=== PATIENT | male | born 1955 | race Two or more races ===

== ENCOUNTER 2019-02-13 19:00 | Emergency (ER) | payer OTHER ==
[~2019-02-13] VITALS: Ht 175.3 cm; Wt 89.4 kg
[2019-02-13] MEDS ORDERED: OMEG1CAP38 PO (19:15)
[2019-02-13] MEDS ORDERED: [UNRECOGNIZED DRUG - REMARK] (19:15)
--- NOTE | 2019-02-13 19:23 | PHYS DOC ---
Past Medical History Past Medical History: High Cholesterol Past Surgical History: Other Additional Past Surgical Histo: hernia Alcohol Use: Occasionally Drug Use: None Adult General Chief Complaint Chief Complaint: MECHANICAL FALL HPI HPI 63-year-old male presents to the emergency Department complaints of fall. Patient currently tripped over his dog from a standing position injuring his right arm. He complains of shoulder pain, arm pain, hand pain. Patient denies any loss of consciousness, no blood thinning medications. Nothing makes his pain worse, nothing makes his pain better. Patient denies any headache, visual change, chest pain, shortness breath, nausea or vomiting. Review of Systems Review of Systems Constitutional: Denies fever or chills [] Respiratory: Denies cough or shortness of breath [] Cardiovascular: No additional information not addressed in HPI [] GI: Denies abdominal pain, nausea, vomiting, bloody stools or diarrhea [] : Denies dysuria or hematuria [] Musculoskeletal: Right arm, shoulder, hand pain Integument: Denies rash or skin lesions [] Neurologic: Denies headache, focal weakness or sensory changes [] All other systems were reviewed and found to be within normal limits, except as documented in this note. Current Medications Current Medications Current Medications Medications (Trade) Dose Ordered Sig/Victor[place] Start Time Stop Time Status Last Admin Dose Admin Fentanyl Citrate (Fentanyl 2ml Vial) 50 mcg PRN Q5MIN PRN 02/13/19 21:30 02/14/19 21:29 Hydromorphone HCl (Dilaudid) 0.5 mg PRN Q10MIN PRN 02/13/19 21:30 02/14/19 21:29 Lidocaine HCl (Xylocaine-Mpf 1% 2ml Vial) 2 ml PRN 1X PRN 02/13/19 21:30 02/14/19 21:29 Morphine Sulfate (Morphine Sulfate) 1 mg PRN Q10MIN PRN 02/13/19 21:30 02/14/19 21:29 Ondansetron HCl (Zofran) 4 mg PRN Q6HRS PRN 02/13/19 21:30 02/14/19 21:29 Prochlorperazine Edisylate (Compazine) 5 mg PACU PRN PRN 02/13/19 21:30 02/14/19 21:29 Propofol 20 ml @ As Directed STK-MED ONCE 02/13/19 21:29 02/13/19 21:29 DC Ringer's Solution 1,000 ml @ 30 mls/hr Q24H 02/13/19 21:22 02/14/19 09:21 Allergies Allergies Allergies Coded Allergies Type Severity Reaction Last Updated Verified No Known Drug Allergies 02/13/19 No Physical Exam Physical Exam Constitutional: Well developed, well nourished, no acute distress, non-toxic appearance. [] HENT: Normocephalic, atraumatic, bilateral external ears normal, oropharynx moist, no oral exudates, nose normal. [] Eyes: PERRLA, EOMI, conjunctiva normal, no discharge. [] Cardiovascular:Heart rate regular rhythm, no murmur [] Lungs & Thorax: Bilateral breath sounds clear to auscultation [] Abdomen: Bowel sounds normal, soft, no tenderness, no masses, no pulsatile masses. [] Skin: Warm, dry, no erythema, no rash. [] Back: No tenderness, no CVA tenderness. [] Extremities: No tenderness, no edema, limited range of motion secondary to pain no obvious deformity, patient able to squeeze my fingers on exam, some sensory loss along lateral aspect of shoulder[] Neurologic: Alert and oriented X 3, no focal deficits noted. [] Psychologic: Affect normal, judgement normal, mood normal. [] Repeat exam post reduction, patient able to move hand and follow commands appropriately, he denies any sensory loss on exam Current Patient Data Vital Signs Vital Signs Date Time Temp Pulse Resp B/P (MAP) Pulse Ox O2 Delivery O2 Flow Rate FiO2 02/13/19 19:03 97.3 79 22 203/106 (138) 95 Room Air 97.3 EKG EKG [] Radiology/Procedures Radiology/Procedures [] Course & Med Decision Making Course & Med Decision Making Pertinent Labs and Imaging studies reviewed. (See chart for details) []63-year-old male presents to the emergency Department complaints of fall. Patient currently tripped over his dog from a standing position injuring his right arm. He complains of shoulder pain, arm pain, hand pain. Patient denies any loss of consciousness, no blood thinning medications. Nothing makes his pain worse, nothing makes his pain better. Patient denies any headache, visual change, chest pain, shortness breath, nausea or vomiting. Anterior dislocation of shoulder appreciated on imaging Sedation provided see nursing notes Attempted reduction without success x 2 Ortho at bedside (Juanita), Anesthesia at bedside Sedation provided see nursing notes Attempted reduction with success post reduction film with shoulder in place Dragon Disclaimer Dragon Disclaimer This electronic medical record was generated, in whole or in part, using a voice recognition dictation system. Departure Departure Impression: Primary Impression: Shoulder dislocation Disposition: 01 HOME, SELF-CARE Condition: STABLE Referrals: NON,STAFF (PCP) Patient Instructions: Sedation, Moderate, Adult, Shoulder Dislocation, [id number] Additional Instructions: Recommend follow up with PCP 3 - 5 days Return to the ER with worsening symptoms, intractable pain, fever, altered mental status Tylenol/Motrin as needed for pain Shoulder sling in place Recommend follow up with Dr. Grant (office number provided) Problem Qualifiers Primary Impression: Shoulder dislocation Encounter type: initial encounter Laterality: right Qualified Codes: S43.004A - Unspecified dislocation of right shoulder joint, initial encounter RICHARD JONES MD Feb 13, 2019 19:23
[2019-02-13] MEDS ORDERED: PROPOFOL 20 ML IV ONE ×2 (20:25→21:29)
[2019-02-13 20:47] VITALS: BP 199/103
[2019-02-13] MEDS ORDERED: IV RINGERS,LACTATED 1000ML 1,000 ML IV SCH (21:22)
[2019-02-13] MEDS ORDERED: PROCHLORPERAZINE 10 MG/2 ML VIAL. IV PRN (21:30)
[2019-02-13] MEDS ORDERED: LIDOCAINE 1% PF 2 ML VIAL. ID PRN (21:30)
[2019-02-13] MEDS ORDERED: ONDANSETRON PF 4 MG/2 ML VIAL. IV PRN (21:30)
[2019-02-13] MEDS ORDERED: MORPHINE SULFATE 2 MG/ML VIAL. IV PRN (21:30)
[2019-02-13] MEDS ORDERED: HYDROmorphone 2 MG/ML VIAL IV PRN (21:30)
[2019-02-13] MEDS ORDERED: fentaNYL PF VIAL 100 MCG/2 ML VIAL IV PRN ×2 (21:30)
--- NOTE | 2019-02-13 21:51 | PDOC2 ---
CONSULT Date of Consult Date of Consult DATE: 02/13/19 TIME: 21:42 Reason for Consult Reason for Consult: Right shoulder dislocation, difficult to reduce Referring Physician Referring Physician: Slime Identification/Chief Complaint Chief Complaint Right shoulder dislocation Source Source: Chart review, Patient History of Present Illness Reason for Visit: This 63-year-old right-handed man works at [employer]. He was walking his dog this evening when he tripped and fell and dislocated his shoulder. Dr. Palencia in the ER tried to reduce it after sedation with propofol, and he was unable to get it reduced. I was consulted. Patient still reports pain in the shoulder and immobility of the arm. He was unable to sign a consent (but gave verbal consent) and feels like he is unable to work his fingers very well at this time. Past Medical History Past Medical History He takes omega-3 fish oil and a cholesterol medication Current Medications Current Medications Current Medications Propofol 20 ml @ As Directed STK-MED ONCE IV ; Start 02/13/19 at 20:25; Stop 02/13/19 at 20:25; Status DC Ondansetron HCl (Zofran) 4 mg PRN Q6HRS PRN IV NAUSEA/VOMITING; Start 02/13/19 at 21:30; Stop 02/14/19 at 21:29 Fentanyl Citrate (Fentanyl 2ml Vial) 25 mcg PRN Q5MIN PRN IV MILD PAIN 1-3; Start 02/13/19 at 21:30; Stop 02/14/19 at 21:29 Fentanyl Citrate (Fentanyl 2ml Vial) 50 mcg PRN Q5MIN PRN IV MODERATE TO SEVERE PAIN; Start 02/13/19 at 21:30; Stop 02/14/19 at 21:29 Morphine Sulfate (Morphine Sulfate) 1 mg PRN Q10MIN PRN IV SEVERE PAIN 7-10; Start 02/13/19 at 21:30; Stop 02/14/19 at 21:29 Ringer's Solution 1,000 ml @ 30 mls/hr Q24H IV ; Start 02/13/19 at 21:22; Stop 02/14/19 at 09:21 Lidocaine HCl (Xylocaine-Mpf 1% 2ml Vial) 2 ml PRN 1X PRN ID PRIOR TO IV START; Start 02/13/19 at 21:30; Stop 02/14/19 at 21:29 Hydromorphone HCl (Dilaudid) 0.5 mg PRN Q10MIN PRN IV SEV PAIN, Second choice; Start 02/13/19 at 21:30; Stop 02/14/19 at 21:29 Prochlorperazine Edisylate (Compazine) 5 mg PACU PRN PRN IV NAUSEA, MRX1; Start 02/13/19 at 21:30; Stop 02/14/19 at 21:29 Propofol 20 ml @ As Directed STK-MED ONCE IV ; Start 02/13/19 at 21:29; Stop 02/13/19 at 21:29; Status DC Active Scripts Active Reported ["statin"] Sawyer 3 Fish Oil Softgel (Sawyer-3 Fatty Acids/Fish Oil) 1 Each Capsule.dr 1 Each PO DAILY Allergies Allergies: Coded Allergies: No Known Drug Allergies (Unverified , 02/13/19) Physical Exam General: Alert, Cooperative, Other (poor dentition) HEENT: Atraumatic, Other (poor dentition) Lungs: Normal air movement Heart: Regular rate Extremities: Other (right shoulder has deformity consistent with inferior anterior dislocation. The skin is intact other than some minor abrasions on the elbow. Radial pulse is intact. Capillary refill is normal. He has only a flicker of motion in the fingers for the radial ulnar and median nerves. Axillary nerve sensation seems to be intact but he cannot activate the deltoid at all.) Skin: No significant lesion Neuro: Other (sensation in the hand is slightly decreased) Psych/Mental Status: Mood NL Vitals VITALS Vital Signs Date Time Temp Pulse Resp B/P (MAP) Pulse Ox O2 Delivery O2 Flow Rate FiO2 02/13/19 19:03 97.3 79 22 203/106 (138) 95 Room Air 97.3 Images Images I reviewed the x-rays which show anterior inferior dislocation without apparent fracture, of the right glenohumeral joint Assessment/Plan Assessment/Plan Closed right shoulder dislocation. I spoke to the patient about options for treatment. I recommended 1 more attempt in the ER of doing a closed reduction with propofol, without complete muscle paralysis. The next step would be a trip to the operating room for complete muscle paralysis and intubation, and likely closed reduction. Finally I did mention to him briefly the possibility of an open reduction for irreducible dislocation caused by entrapment of the biceps tendon and rotator cuff. He agreed to proceed with probable closed reduction in the ER and gave verbal consent for a trip to the operating room if needed. Dr. Palencia the ER doctor as well as Dr. Figueredo the anesthesiologist managed the propofol sedation in the ER. Bag oxygen was used, and constant cardiopulmonary monitoring was used. Approximately 100 mg of propofol was used, until the patient no longer had the urge to withdraw or have muscle spasm. Traction was used manually, and maintain for a few seconds to allow muscle relaxation. This was a difficult reduction, however with sustained manual traction the shoulder reduced. The patient was allowed to awake and ca rdiopulmonary monitoring and oxygenation were maintained. There were no apparent complications. Postreduction x-ray at 21:39:15 shows satisfactory glenoid humeral reduction. The patient should use an arm sling and have office follow-up. TIFFANY DAMON MD Feb 13, 2019 21:51
--- NOTE | 2019-02-13 22:03 | PHYS DOC ---
MODERATE SEDATION ASSESSMENT RISKS/ALTERNATIVES Risks/Alternatives Risks and alternatives of this type of sedation and procedure discussed with: RISK/ALTERNATIVES: Patient H & P ON CHART H & P H & P on chart and reviewed for co-morbid conditions and appropriate labs. H&P ON CHART: Yes STATUS PREG STATUS ASSESSED: N/A MEDS/ALLERGIES REVIEWED Meds/Allergies Reviewed Medications and Allergies including time and route of recently administered narcotics and sedatives. MEDS/ALLERGIES REVIEWED: Yes ASA RATING ASA RATING: I AIRWAY ASSESSMENT Airway Assessment Airway patency, oral function limitations, presence of caps, crowns, dentures, partials, and ability to extend neck assessed. AIRWAY ASSESSMENT: Yes MALLAMPATI SCORE MALLAMPATI SCORE: I PRE-SEDATION ASSESSMENT PRE-SEDATION ASSESSMENT: Yes RICHARD JONES MD Feb 13, 2019 22:03
[2019-02-13 22:32] VITALS: BP 156/84
[2019-02-13] MEDS ORDERED: HYDROcodone/APAP 5/325MG 1 TAB TABLET PO ONE (23:00)
--- NOTE | 2019-02-14 00:05 | RAD ---
3 views right wrist HISTORY: Pain status post fall AP lateral oblique views The visualized osseous structures appear normal. IMPRESSION: No acute findings. End impression Very views right shoulder 9:15 PM History: pain Internally and externally rotated AP of shoulder obtained and Y view. The right humeral head projects anterior and slightly inferior and medial to the glenoid. There is moderate degenerative changes the right AC joint. impression: Status post anterior dislocation right shoulder. End impression 3 views right shoulder 9:39 PM: History status post reduction Internally and actually rotated AP views and Y-view The glenohumeral relationship has been restored. The visualized osseous structures appear grossly intact. IMPRESSION: Status post successful reduction of right shoulder anterior dislocation. End impression Two-view right humerus AP lateral views The visualized osseous structures appear grossly intact. Previously seen anterior dislocation right shoulder seen. IMPRESSION: No fracture seen. 2 views right forearm: AP lateral views The visualized osseous structures appear normal. IMPRESSION: No acute findings. Electronically signed by: Jeffy Brar III, MD (02/14/2019 12:01 AM) [facility]
== END 2019-02-13 22:50 | disposition home or self-care (01) ==
LOC: ER 19:00
DX: S43.004A Unspecified dislocation of right shoulder joint, initial encounter (principal); E78.00 Pure hypercholesterolemia, unspecified; W18.39XA Other fall on same level, initial encounter; Y93.89 Activity, other specified; Y92.89 Other specified places as the place of occurrence of the external cause; Y99.8 Other external cause status
CPT/HCPCS: 23650; 73020; 73030; 73060; 73090; 73110; 99285-25

== ENCOUNTER → 2019-08-01 | Outpatient (CLI) | payer OTHER ==
[~2019-08-01] MED LIST: OMEG1CAP38 PO; [UNRECOGNIZED DRUG - REMARK]
--- NOTE | 2019-08-01 12:46 | KCIC ---
UPPER EXT NON JOINT WO CONT RT 08/01/2019 10:15 AM INDICATION: Dislocation right shoulder. Unable to raise right arm. COMPARISON: None available. TECHNIQUE: Multiplanar, multisequence MR imaging of the right brachial plexus was performed without intravenous contrast. FINDINGS: Spinal cord: Normal caliber and signal of the visualized spinal cord. Minimal retrolisthesis of C5 on C6. Disc bulges are identified at C3-C4, C4-C5, C5-C6 and C6-C7. At C3-C4, there is mild disc bulge with moderate left and moderate facet arthropathy resulting in moderate left and mild right neuroforaminal stenosis. At C4-C5, there is mild disc bulge with moderate to severe left and moderate right facet arthropathy and mild left uncovertebral joint disease resulting in moderate left and mild right neuroforaminal stenosis. At C5-C6, there is a posterior disc osteophyte complex with left central disc protrusion extending into the foraminal zone with moderate facet and mild uncovertebral joint disease resulting in severe left neuroforaminal stenosis and mild spinal canal stenosis without deformity of the cord or cord signal alteration. At C6-C7, there is a disc bulge asymmetric to the right. Mild facet arthropathy and uncovertebral joint disease. Moderate right and mild left neuroforaminal stenosis. Mild spinal canal stenosis. Brachial plexus: Roots: Normal. Trunks: Normal. Divisions: Normal. Cords: Normal. Branches: Normal. Muscles and tendons: Normal morphology and signal intensity of the scalene musculature. Bones: Marrow signal intensity is within normal limits. Joints: Moderate right acromioclavicular osteoarthrosis with fluid in the right acromioclavicular joint space. Please refer to the separate dedicated right shoulder MRI for further evaluation. Thoracic outlet and cervical thoracic Junction: Normal scalene triangle, costoclavicular space, and retropectoralis minor space. Other findings: No vascular abnormality, mass or other significant findings. IMPRESSION: There is no disruption of the right brachial plexus. Mild cervical spondylosis, as described in detail above. Moderate right acromioclavicular osteoarthrosis with fluid in the joint space. Please refer to separate dictated right shoulder MRI for further evaluation. Electronically signed by: Dulce Guardado MD (08/01/2019 12:43 PM) [facility]
--- NOTE | 2019-08-01 12:58 | KCIC ---
MR of the right shoulder HISTORY: Right shoulder dislocation January 2019. Continued shoulder pain. TECHNIQUE: Routine multiplanar sequences are obtained. FINDINGS: Mild motion degradation. The acromioclavicular joint is degenerative, with moderate undersurface osteophytes. Small subacromial spur. Rotator cuff signal heterogeneity compatible with tendinosis. Partial tear of the upper subscapularis tendon insertion. Thinning of the anterior supraspinatus tendon, measures 15 mm AP diameter, compatible with partial thickness articular and bursal surface tearing. This aspect of the tendon measures 1-2 mm in thickness. Partial articular surface tearing through the infraspinatus tendon. No full-thickness disruption or retraction. No advanced muscle atrophy. Trace subacromial subdeltoid bursal fluid. Glenohumeral joint is mildly degenerative. Diffuse labral signal compatible with degeneration. This is greater at the posterosuperior quadrant, suspicious for a degenerative tear. Biceps tendinosis with partial tearing. Slight medial shift of the tendon. No evidence of acute fracture. No aggressive bone destruction. IMPRESSION: 1. Partial-thickness articular and bursal side tearing of the anterior supraspinatus tendon. Partial infraspinatus and subscapularis tendon tears. 2. Labral degeneration, with posterosuperior labral degenerative tear. 3. Biceps tendinosis with partial tearing and slight medial shift. Electronically signed by: Sarthak Chavez MD (08/01/2019 12:55 PM) [place] [id number]
== END ==
LOC: KCIC MRI 10:07
PROVIDERS: ATTEND Orthopaedic Surgery
DX: S14.3XXD Injury of brachial plexus, subsequent encounter (principal); S43.004D Unspecified dislocation of right shoulder joint, subsequent encounter; M47.812 Spondylosis without myelopathy or radiculopathy, cervical region; M19.011 Primary osteoarthritis, right shoulder; M25.411 Effusion, right shoulder; M75.111 Incomplete rotator cuff tear or rupture of right shoulder, not specified as traumatic; X58.XXXD Exposure to other specified factors, subsequent encounter
CPT/HCPCS: 73218; 73221

== ENCOUNTER → 2019-08-27 | Outpatient (CLI) | payer OTHER | END | disposition home or self-care (01) | LOC: LAB 12:17 | PROVIDERS: ATTEND Orthopaedic Surgery | DX: Z01.818 Encounter for other preprocedural examination (principal); Z11.59 Encounter for screening for other viral diseases; M67.813 Other specified disorders of tendon, right shoulder; M75.41 Impingement syndrome of right shoulder; S46.011A Strain of muscle(s) and tendon(s) of the rotator cuff of right shoulder, initial encounter; Y93.89 Activity, other specified; Y92.89 Other specified places as the place of occurrence of the external cause; Y99.8 Other external cause status; S43.004D Unspecified dislocation of right shoulder joint, subsequent encounter; X58.XXXD Exposure to other specified factors, subsequent encounter | CPT/HCPCS: U0003-CS ==

== ENCOUNTER 2019-08-31 05:50 | Day surgery (SDC) | payer OTHER ==
[~2019-08-31] VITALS: Ht 175.3 cm; Wt 97.1 kg
[~2019-08-31 05:50] MED LIST changes: +ACET325T9 PO; +ATOR20TA PO
[2019-08-31] MEDS ORDERED: BUPIVACAINE-EPI 0.5%-1:200000 MPF 30 ML VIAL. ONE (06:51)
[2019-08-31] MEDS ORDERED: LIDOCAINE 1% PF 2 ML VIAL. ONE (06:51)
[2019-08-31] MEDS ORDERED: BUPIVACAINE MPF 0.5% 30 ML VIAL. ONE (06:52)
[2019-08-31] MEDS ORDERED: MIDAZOLAM HCL/PF 2 MG/2 ML VIAL. ONE (06:58)
[2019-08-31] MEDS ORDERED: PROCHLORPERAZINE 10 MG/2 ML VIAL. IV PRN (07:00)
[2019-08-31] MEDS ORDERED: HYDROmorphone 2 MG/ML VIAL IV PRN (07:00)
[2019-08-31] MEDS ORDERED: fentaNYL PF VIAL 100 MCG/2 ML VIAL IV PRN ×2 (07:00)
[2019-08-31] MEDS ORDERED: MORPHINE SULFATE 2 MG/ML VIAL. IV PRN (07:00)
[2019-08-31] MEDS ORDERED: IV RINGERS,LACTATED 1000ML 1,000 ML IV SCH (07:00)
[2019-08-31] MEDS ORDERED: ONDANSETRON PF 4 MG/2 ML VIAL. IV PRN (07:00)
[2019-08-31] MEDS ORDERED: ceFAZolin 2GM PREMIX 2 GM/50 ML BAG IV ONE (07:00)
[2019-08-31] MEDS ORDERED: EPINEPHrine VIAL 30 MG/30 ML VIAL ONE (07:01)
[2019-08-31] MEDS ORDERED: BUPIVACAINE-EPI 0.25%-1:200000 MPF 30 ML VIAL. ONE ×2 (07:01→08:44)
[2019-08-31] MEDS ORDERED: ROCURONIUM 50 MG/5 ML VIAL. ONE (07:10)
[2019-08-31] MEDS ORDERED: SEVOFLURANE > 120 MINUTES. IH ONE (07:10)
[2019-08-31] MEDS ORDERED: GLYCOPYRROLATE 1 MG/5 ML VIAL. ONE (07:10)
[2019-08-31] MEDS ORDERED: fentaNYL PF VIAL 100 MCG/2 ML VIAL ONE ×2 (07:10→08:58)
[2019-08-31] MEDS ORDERED: DEXAMETHASONE SOD PHOS 4 MG/ML VIAL ONE (07:11)
[2019-08-31] MEDS ORDERED: LIDOCAINE 2% PF 5 ML VIAL. ONE (07:11)
[2019-08-31] MEDS ORDERED: NEOSTIGMINE METHYLSULFATE 5 MG/5 ML SYRINGE. ONE (07:11)
[2019-08-31] MEDS ORDERED: PROPOFOL 10 MG/ML (20ML) VIAL. IV ONE (07:11)
[2019-08-31] MEDS ORDERED: ONDANSETRON PF 4 MG/2 ML VIAL. ONE (07:11)
[2019-08-31] MEDS ORDERED: PHENYLEPHRINE 10 MG/ML VIAL. ONE (08:08)
[2019-08-31] MEDS ORDERED: ceFAZolin SODIUM IV Push 1 GM VIAL. IVP ONE (08:24)
[2019-08-31] MEDS ORDERED: hydrALAZINE 20 MG/ML VIAL. ONE (09:01)
--- NOTE | 2019-08-31 10:34 | PDOC4 ---
Operative Note Operative Note Date of Procedure: August 31, 2019 Pre-Op Diagnosis: * Traumatic incomplete tear of right rotator cuff, initial encounter - S46.011A * Impingement syndrome of right shoulder - M75.41 * Biceps tendinosis of right shoulder - M67.813 Post-Op Diagnosis: * Traumatic incomplete tear of right rotator cuff, initial encounter - S46.011A * Impingement syndrome of right shoulder - M75.41 * Acromioclavicular joint osteoarthritis, right shoulder - M19.011 Procedure: * Repair of ruptured musculotendinous cuff (rotator cuff) open, chronic CPT 27757 * Arthroscopy, shoulder, surgical decompression of subacromial space, with partial acromioplasty CPT 71374 * Arthroscopy, shoulder, surgical; distal claviculectomy including distal articular surface (Derrick procedure) CPT 58311 Surgeon: Tiffany Damon MD Global Account Manager: RICO Mason Anesthesia: General EBL: 25 mL Specimens Obtained: none Complications: none Drains: none Findings: High-grade partial tear of the distal supraspinatus tendon, chronic appearance. The upper subscapularis tendon appears normal arthroscopically and during the open portion of the procedure. The biceps tendon looked healthy on the arthroscopic view, and I could detect no partial tearing or tendinitis. During the open portion the biceps tendon was palpated in the intertubercular sulcus and does not seem subluxed or dislocated and I did not feel that tenodesis was warranted. The distal clavicle was extremely prominent, arthritic in nature, causing impingement, and I felt resection of the entire articular surface of the distal clavicle was warranted and that was performed. Implants: Arthrex swivel lock anchors 4.75 mm x 4 Indications for Procedure: Wilmar has had right shoulder pain and weakness since an injury in 2019. He was seen in [facility] on 02/13/2019 after he fell while walking the dog. The ED had difficulty reducing the shoulder and I came in to reduce the shoulder under sedation. 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 At his visit on 04/12/19 he reported continued have pain in the codey ulder and at the biceps with radiation of pain distally. He also reported persistent numbness in his 2nd, 3rd, 4th, and 5th digits on the right. He had been using Tylenol for pain control with some relief. He states that his shoulder continues to be painful although it is better than initially after the injury. He describes pain reaching overhead. The history, exam, and treatments were obtained through school clerk service. MRI shows high-grade partial tear of the distal supraspinatus tendon, biceps pathology, degenerative labral tear small upper subscapularis tendon tear. We discussed potential risks of surgery such as stiffness, re-tear, continued pain, infection, neurovascular injury, or other potential surgical or anesthetic complications. All of his questions about surgery were answered and he desired to proceed. A written consent was obtained. Procedure in Detail: The patient was identified in the preoperative holding area. The correct right shoulder was marked by me. The patient was taken to the operating room where general anesthesia was used. The patient was positioned in the beachchair position with the bony prominences well-padded and the eyes protected. Preoperative antibiotics were given intravenously. A timeout procedure was performed. Under sterile technique 25 mL of bupivacaine with epinephrine was injected into the subacromial space and glenohumeral joint. The limb was then thoroughly prepared with surgical ChloraPrep solution circumferentially. Sterile waterproof arthroscopy shoulder drapes were applied, along with an impervious stockinette over the arm, and a Spider arm richards. Posterior, posterolateral, lateral, and anterior arthroscopy portals were used. The glenohumeral joint showed normal articular surfaces. The biceps tendon was palpated with the shaver, and retracted into the joint, and all of the biceps tendon that I can visualize appears normal. It also does not appear dislocated when viewed arthroscopically. I saw no evidence for need for debridement or tenodesis. There are some minor degenerative changes of the labrum and I did a shaving debridement. The distal portion of the supraspinatus is nearly detached from the humeral head, and the footprint is exposed. This is a high-grade partial-thickness tear, probably 90% of the thickness of the distal supraspinatus. The subacromial space was entered. The anterior acromion was prominent. The ConTurn Edge thermal energy bipolar device was used for hemostasis and to resect the undersurface periosteum exposing the prominent anterior acromion. A 6.0 mm oval sushila was used for the acromioplasty. A three-stage acromioplasty was performed, with the sushila first laterally, removing anterior acromion, using the distal clavicle as a reference. The sushila was then placed in the posterior portal, and a cutting block technique was used for smoothing of the lateral edge of the acromion tapering the anterior acromion into a Bigliani type I configuration. Final smoothing of the acromion was performed with the sushila again in the lateral portal, and direct arthroscopic visualization. The previously very tight subacromial space was now nicely decompressed. This completes CPT 54335, subacromial decompression and acromioplasty. No further impingement appears to be occurring from the acromion, however the arthritic distal clavicle is causing impingement and there are large osteophytes and a very degenerative osteoarthritic distal clavicle articular surface. I started out by doing some co-planing of the distal clavicle but ultimately felt that resection of the entire articular surface was warranted to prevent pain and to prevent impingement. The sushila was used to resect the entire articular surface of the distal clavicle, completing the [place] arthroscopic distal clavicle excision. The arthroscopic instruments were removed. Antibiotics were redosed. Outer gloves were changed. The skin was prepared a second time with ChloraPrep solutio n. An anterior lateral deltoid raphae splinting incision was used. Care was made not to extend more than 4 cm distally so as to avoid axillary nerve injury. Self-retaining retractors were placed. My financial assistant used an [facility] retractor in addition to the self-retaining retractors. I visualized and palpated the upper subscapularis tendon and found no defect or tear. I had visualized the same area arthroscopically and it also appears unremarkable. I did not feel that repair of the upper subscap was needed. The biceps tendon was also palpated in the intertubercular sulcus, and visualized through a small incision in the sheath, and the tendon in the sulcus appears normal. The palpation of the rotator cuff shows a high-grade partial-thickness tear of the anterior supraspinatus. I mobilized the cuff using a 15 blade scalpel, to complete the tear and expose the footprint. The motorized bur was used to decorticate the supraspinatus footprint, and create a "crimson duvet". The 2 medial 4.75 mm swivel lock anchors with swaged suture tapes were used. All of the medial sutures were deployed with Arthrex scorpion device, about 16 mm from the distal edge of the cuff. The medial mattress sutures were secured and tied, and Freeman my financial assistant held tension reducing the cuff while the sutures were tied. The swaged suture tapes were then trimmed, the tapes were crossed, and the 2 lateral row anchors were now placed at the lateral aspect of the footprint for secure speed bridge repair. The additional sutures from the lateral row anchors were used anteriorly and posteriorly to secure the edges of the dog ear of the tear. A secure and tensio n-free repair was obtained. The shoulder was taken through a range of motion, and the repair security confirmed. Copious saline irrigation was used. I closed the fascia of the deltoid with #0 Vicryl suture in a [id number] fashion. My financial assistant Rocael then completed the subcutaneous closure with 2-0 Vicryl. Hhe repaired the skin with #3-0 Prolene. Hhe injected an additional 30 mL of bupivacaine with epinephrine. Hhe placed Xeroform and bulky sterile dressings. She then applied a [employer] UltraSling. There were no apparent complications. Needle and sponge counts were correct. TIFFANY DAMON MD Aug 31, 2019 10:34
[2019-08-31 10:46] VITALS: BP 154/90
== END 2019-08-31 11:59 | disposition home or self-care (01) ==
LOC: SURG 05:50
PROVIDERS: ATTEND Orthopaedic Surgery
DX: S46.011A Strain of muscle(s) and tendon(s) of the rotator cuff of right shoulder, initial encounter (principal); M75.41 Impingement syndrome of right shoulder; M19.011 Primary osteoarthritis, right shoulder; M67.813 Other specified disorders of tendon, right shoulder; X58.XXXA Exposure to other specified factors, initial encounter; Y93.89 Activity, other specified; Y92.89 Other specified places as the place of occurrence of the external cause; Y99.8 Other external cause status; Z79.899 Other long term (current) drug therapy
CPT/HCPCS: 23412; 29824; 29826; A7015; J0171; J0690; J1100; J2250; J2370; J2405; J2704; J2710; J3010; J3490; J7120; A4623; J0360